=== PATIENT | female | born 1990 | race Caucasian/White ===

== ENCOUNTER 2020-11-19 00:06 | Inpatient (IN) | payer OTHER ==
[2020-11-19] MEDS ORDERED: Ringers Lactate 1,000 ML IV PRN (02:01)
[2020-11-19] MEDS ORDERED: PROMETHAZINE INJ 25 MG/ML AMP IM PRN (02:01)
[2020-11-19] MEDS ORDERED: METHYLERGONOVINE 0.2MG/ML AMP IM PRN (02:01)
[2020-11-19] MEDS ORDERED: MEPERIDINE HCL 25 MG/ML SYR IV PRN (02:01)
[2020-11-19] MEDS ORDERED: CARBOPROST TROME 250 MCG/ML IM PRN (02:01)
[2020-11-19] MEDS ORDERED: BUTORPHANOL 1 MG/ML INJ IV PRN (02:01)
[2020-11-19] MEDS ORDERED: Ringers Lactate 1,000 ML IV SCH (03:00)
[2020-11-19] MEDS ORDERED: OXYTOCIN/LR 20 UNIT/1,000 ML BAG IV SCH ×2 (03:00→05:00)
[2020-11-19 03:04] VITALS: BMI 25.7
[2020-11-19 03:14] LABS: Absolute Lymphocytes (CBC) 2.2 K/uL (0.7-4.9); Basophils % 0.6 % (0-1.3); Hematocrit 33.2 % (36.0-45.0); Lymphocytes % 22.9 % (15.3-44.8); MPV 10.4 fL (7.6-11.3); RBC Red Blood Cell Count 3.69 M/uL (3.86-4.86)
[2020-11-19] MEDS ORDERED: FENTANYL CITR 100 MCG/2 ML IV ONE (03:30)
[2020-11-19] MEDS ORDERED: FENTANYL/BUPIVACAINE/NS/PF 200 MCG/100 ML BAG EP PRN (03:30)
[2020-11-19] MEDS ORDERED: ROPIVACAINE HCL/PF 0.2% 10 ML VIAL EP ONE (03:36)
[2020-11-19] MEDS ORDERED: LIDOCAINE 1% MPF 30 ML VIAL ONE (03:37)
[2020-11-19] MEDS ORDERED: OXYTOCIN/LR 20 UNIT/1,000 ML BAG IV ONE (03:38)
[2020-11-19 03:53] LABS: Urine Appearance CLEAR (Clear); Urine Bilirubin NEGATIVE (Negative); Urine Blood NEGATIVE (Negative); Urine Color YELLOW (Yellow); Urine Glucose NEGATIVE (Negative); Urine Protein 1+ (Negative); Urine Urobilinogen 0.2 mg/dL (0.2-1.0); Urine pH 7.5 (5.0-7.0)
[2020-11-19] MEDS ORDERED: ROPIVACAINE HCL 0 ML EP ONE (04:12)
[2020-11-19] MEDS ORDERED: ROPIVACAINE HCL 0 ML ONE (04:12)
[2020-11-19] MEDS ORDERED: ACETAMINOPHEN 500 MG TAB PO PRN (04:27)
[2020-11-19] MEDS ORDERED: Oxycodone HCl/Acetaminophen 1 TAB TAB PO PRN ×2 (04:27)
[2020-11-19] MEDS ORDERED: BISACODYL 10 MG RECTAL SUPP PR PRN (04:27)
[2020-11-19] MEDS ORDERED: DIPHENHYDRAMINE 25 MG TAB/CAP PO PRN (04:27)
[2020-11-19] MEDS ORDERED: DOCUSATE NA/SENNA CONC 1 TAB PO PRN (04:27)
--- NOTE | 2020-11-19 05:05 | DN ---
Surgeon: Michael Stevenson MD A 30-year-old 4, para 1, at 38 weeks 5 days, came in for labor. Observation went from 2 to 4 cm rather rapidly. She was given Stadol IV 1 time and Phenergan 25 mg IM. Requested epidural anest hesia, but went rapidly to complete second stage of about 20 minutes. Spontaneous vaginal delivery o f a 6-pound 2-ounce female, Apgars 9 and 10. No episiotomy. No laceration. Schultze delivery of th e placenta. Estimated blood loss of 200 cc or less. Tolerated all procedures well, was given 25 mg Demerol after delivery of the baby and clamping the cord as per her request. Final Diagnoses: Term intrauterine 38 weeks 5 days, spontaneous labor, vaginal delivery. TEO/MODL Voice ID: [id number] Report ID: [id number]
--- NOTE | 2020-11-19 05:05 | PREOPHP ---
Date of Admission: 11/19/2020 History Of Present Illness: A 30-year-old 4, para 1, 38 weeks 5 days, came in with spontaneo us labor. During the labor, received Stadol 1 mg IV. During observation went from 2 to 4 cm. Family History: Noncontributory. Past Medical History: History of premature labor, was given Celestone during the labor. Physical Examination: HEENT: Clear. Pupils equal, round, reactive to light and accommodation. Conjunctivae well perfused . No oral, lingual, or buccal lesions. Chest and Lungs: Clear. Heart: Without murmurs, thrills, heaves, or rubs. Abdomen: Term size. Extremities: Clear without edema, cyanosis, or clubbing. Records are not available, but thought to be Rh positive, immune to Rubella. Strep negative. Allergies: NO ALLERGIES. Social History: No smoking prior to admission. Admitted for stabilization and delivery. TEO/ELAINE Voice ID: [id number]
[2020-11-19 05:27] LABS: Urine Bacteria 20-50 /HPF (<20); Urine RBC <5 /HPF (NONE SEEN); Urine Urothelial Cells <5 /HPF (NONE SEEN)
--- NOTE | 2020-11-19 10:13 | PN ---
, the patient is doing fine. Lochia is normal. She is ambulating, voiding. No complaints or problems this morning. Full dismissal instructions. She is to call the office to report any tem perature elevation over the next 6 weeks of 100 degrees or more, severe pain, heavy bleeding, or any other type of abnormalities. She has had her Tdap immunization. We will go over everything again to mcadams, but at this point seems to be doing quite well. TEO/ELAINE Voice ID: [id number] Report ID: [id number]
[2020-11-19] MEDS: IBUPROFEN 200 MG TAB PO PRN ×2 (10:15→16:40)
[2020-11-19] MEDS ORDERED: Rho(D) IG (HUMAN) 300 MCG SYR IM ONE (19:00)
--- NOTE | 2020-11-20 08:05 | DS ---
Hospital Course: Melanie Valdez is a 30-year-old 4, para 1. The patient is a negative. Baby 's blood type pending. Immune to rubella. Negative beta strep. Negative COVID. The patient delive red a 6 pounds 2 ounces female, Apgars 9 and 9. Stadol 1 mg IV, Phenergan 25 mg IM, 25 mg of Demerol . After delivery of the baby, clamping the cord. Schultze delivery of the placenta. Blood loss 200 cc or less. No episiotomy. No lacerations. ; afebrile, ambulating and voiding. Lochia is normal. The patient will be dismissed later this morning, to report back to my office in 6 weeks for followup. To report any temperature elevation of 100 degrees or greater, severe pain, heavy blee ding, or any other type of abnormalities. Final Diagnoses: Term intrauterine at 38 weeks 5 days. Vaginal delivery. Rh negative. R [facility] qualification underway. Baby is Rh positive, therefore, she will need RhoGAM. Previous histor y of premature labor. Celestone given earlier in the . TEO/MODL Voice ID: [id number] Report ID: [id number]
[2020-11-20 08:08] VITALS: BP 137/84; TEMP 98.8
[2020-11-20 21:28] LABS: RPR (Rapid Plasma Reagin) NON-REACT (NON-REACT)
[2020-11-22 18:23] LABS: HBsAG Nonreactive (Nonreactive)
== END 2020-11-20 08:40 | disposition home or self-care (01) | DRG 807 ==
LOC: L&D 00:06 → 2ND-WC 01:53
PROVIDERS: ADMIT Specialist; ATTEND Specialist
PROC: 10E0XZZ Delivery of Products of Conception, External Approach (ICD-10-PCS; principal; 2020-11-19)
PROC: 3E0234Z Introduction of Serum, Toxoid and Vaccine into Muscle, Percutaneous Approach (ICD-10-PCS; 2020-11-19)
DX: O26.893 Other specified pregnancy related conditions, third trimester (principal); Z37.0 Single live birth; Z67.91 Unspecified blood type, Rh negative; Z3A.38 38 weeks gestation of pregnancy; Z20.822 Contact with and (suspected) exposure to COVID-19
CPT/HCPCS: 36415; 81001; 85025; 85461; 86592; 86850; 86870; 86901; 87086; 87088; 87340; 99218; J0595; J2210; J2550; J2590; J2790; J2795; J3010; J7120; U0003